=== PATIENT | female | born 1950 | race Caucasian/White ===

== ENCOUNTER → 2016-12-21 | Outpatient (CLI) | payer OTHER, MEDICARE | LOC: FIMAGING 14:22 | PROVIDERS: ATTEND Family Medicine | DX: Z12.31 Encounter for screening mammogram for malignant neoplasm of breast (principal); Z80.3 Family history of malignant neoplasm of breast | CPT/HCPCS: G0202 ==

== ENCOUNTER → 2017-03-16 | Outpatient (CLI) | payer OTHER, MEDICARE | LOC: FIMAGING 11:22 | PROVIDERS: ATTEND Registered Nurse | DX: S09.90XA Unspecified injury of head, initial encounter (principal); M25.532 Pain in left wrist; M25.531 Pain in right wrist; M25.522 Pain in left elbow; W19.XXXA Unspecified fall, initial encounter; M18.11 Unilateral primary osteoarthritis of first carpometacarpal joint, right hand; M19.031 Primary osteoarthritis, right wrist; M19.032 Primary osteoarthritis, left wrist; R93.6 Abnormal findings on diagnostic imaging of limbs ==

== ENCOUNTER → 2017-05-03 | Outpatient (CLI) | payer OTHER, MEDICARE | LOC: BHFA 16:15 | PROVIDERS: ATTEND Internal Medicine Interventional Cardiology | DX: R94.31 Abnormal electrocardiogram [ECG] [EKG] (principal) ==

== ENCOUNTER → 2017-05-20 | Outpatient (CLI) | payer OTHER, MEDICARE | LOC: FIMAGING 13:33 | PROVIDERS: ATTEND Family Medicine | DX: M50.320 Other cervical disc degeneration, mid-cervical region, unspecified level (principal) ==

== ENCOUNTER → 2017-07-29 | Outpatient (CLI) | payer OTHER, MEDICARE | LOC: FIMAGING 09:56 | PROVIDERS: ATTEND Family Medicine | DX: K76.0 Fatty (change of) liver, not elsewhere classified (principal) ==

== ENCOUNTER → 2017-12-22 | Outpatient (CLI) | payer OTHER, MEDICARE | LOC: FIMAGING 10:03 | PROVIDERS: ATTEND Family Medicine | DX: Z12.31 Encounter for screening mammogram for malignant neoplasm of breast (principal); Z80.3 Family history of malignant neoplasm of breast ==